=== PATIENT | female | born 1960 | race Two or more races ===

== ENCOUNTER 2018-06-23 14:43 | Emergency (ER) | payer OTHER ==
[~2018-06-23] VITALS: Ht 160 cm; Wt 76.2 kg
[2018-06-23] MEDS ORDERED: JANUMET 50-5001 EACH (15:52)
[2018-06-23] MEDS ORDERED: METFORMIN HCL500 MG (15:52)
[2018-06-23] MEDS ORDERED: [UNRECOGNIZED DRUG - OTHER] (15:53)
[2018-06-23] MEDS ORDERED: SYNTHROID50 MCG (15:54)
== END 2018-06-23 19:54 | disposition home or self-care (01) ==
LOC: ER 14:43
DX: R10.32 Left lower quadrant pain (principal)